=== PATIENT | female | born 1970 | race Caucasian/White ===

== ENCOUNTER → 2017-02-09 | Outpatient (CLI) | payer BC ==
[2017-02-09 14:52] VITALS: BP 131/70; PULSE 80; TEMP 98.2; BMI 26.6
--- NOTE | 2017-02-09 15:06 | P.BASOAP ---
Subjective Progress Note Date: 02/09/17 Principal diagnosis: Morbid obesity Patient here today requesting a lap band adjustment. She has not been seen at this clinic. She believes that she has 11 mL in her band. Recently she has had more hunger and able to eat more food. No significant dysphasia symptoms. She was previously tight we believe at 12.5 mL. She was as low as 131 pounds. Currently weight is in the 160s. Objective - Vital Signs Vital signs: Vital Signs Temp 98.2 F 02/09/17 14:48 Pulse 80 02/09/17 14:48 Resp BP 131/70 02/09/17 14:48 Pulse Ox Intake & Output 02/08/17 02/09/17 02/09/17 18:59 06:59 18:59 Weight 74.979 kg - Exam Abdomen: Soft, nontender, nondistended Assessment/Plan (1) Morbid obesity Narrative/Plan: Will add 0.5 mL of saline to her band. She will follow up with us as needed following that. The patient's lap band port was palpated. The site was aseptically prepped. 1% lidocaine was infiltrated into the subcutaneous tissues through a diabetic syringe. The Worrell needle was advanced into the port. Aspiration took place. A total of 0.5 ml of fluid was added. Pressure was held and a sterile dressing was applied. Plan: Date: 02/09/17 Initial Weight: Initial BMI: Current Weight: 74.979 kg Current BMI: 26.6 Type of Surgery: Total Volume in Band: Previous Volume: Volume Removed: Volume Added: Band Size:
== END | disposition home or self-care (01) ==
LOC: BARWHC3 14:26
PROVIDERS: ATTEND Surgery
DX: E66.01 Morbid (severe) obesity due to excess calories (principal); Z68.26 Body mass index [BMI] 26.0-26.9, adult
CPT/HCPCS: 99212

== ENCOUNTER → 2021-01-28 | Outpatient (CLI) | payer BC ==
[2021-01-28 16:00] VITALS: BP 155/88; PULSE 83; RESP 16; TEMP 98.2; BMI 29.5
--- NOTE | 2021-01-28 19:41 | P.BASOAP ---
Subjective Progress Note Date: 01/28/21 Principal diagnosis: Morbid obesity Patient returns for evaluation. Last seen 4 years ago. Was filled last time to 11.5 cc. Previously was tight at 12.5 cc. Lately as described new reflux for the last 2 months. Occasional vomiting. Weight is actually increased since last visit. Would like band loosened. Objective - Vital Signs Vital signs: Vital Signs Temp 98.2 F 01/28/21 15:55 Pulse 83 01/28/21 15:55 Resp 16 01/28/21 15:55 BP 155/88 01/28/21 15:55 Pulse Ox Intake & Output 01/28/21 01/28/21 01/29/21 06:59 18:59 06:59 Weight 83.007 kg - Exam Abdomen: Soft, nontender, nondistended Assessment/Plan (1) Morbid obesity Narrative/Plan: We will loosen the patient's band given the patient's recent history of acid reflux. Patient will notify me if the symptoms resolve. The patient's lap band port was palpated. The site was aseptically prepped. The Worrell needle was advanced into the port. Aspiration took place. A total of 8ml of fluid was Removed. Pressure was held and a sterile dressing was applied. Plan: Date: 01/28/21 Initial Weight: 74.984 kg Initial BMI: 26.6 Current Weight: 83.007 kg Current BMI: 29.5 Type of Surgery: Total Volume in Band: 3.5 Previous Volume: 11.5 Volume Removed: 8.0 Volume Added: Band Size:
== END ==
LOC: BARWHC3 15:01
PROVIDERS: ATTEND Surgery
DX: E66.01 Morbid (severe) obesity due to excess calories (principal); Z68.29 Body mass index [BMI] 29.0-29.9, adult; Z46.51 Encounter for fitting and adjustment of gastric lap band; Z88.0 Allergy status to penicillin
CPT/HCPCS: 99212

== ENCOUNTER → 2021-04-22 | Outpatient (CLI) | payer BC ==
[2021-04-22 12:09] VITALS: BP 130/75; PULSE 73; TEMP 98.2; BMI 29.8
--- NOTE | 2021-04-22 12:33 | P.BASOAP ---
Subjective Progress Note Date: 04/22/21 Principal diagnosis: Morbid obesity Patient returns today after having band loosened in January. Her band was being loosened because of hysterectomy performed in February. Patient incidentally complained of reflux and intermittent regurgitation when I saw her at the time of loosening her lap band. Patient has not had an esophagram done in quite some time. Says her symptoms of reflux and regurgitation are completely resolved. No pain. Doing well after her hysterectomy. Only gained 2 pounds. Recently joined a weight loss program noom. Objective - Vital Signs Vital signs: Vital Signs Temp 98.2 F 04/22/21 12:05 Pulse 73 04/22/21 12:05 Resp BP 130/75 04/22/21 12:05 Pulse Ox Intake & Output 04/21/21 04/22/21 04/22/21 18:59 06:59 18:59 Weight 83.915 kg - Exam Abdomen: Soft, nontender, nondistended Assessment/Plan (1) Morbid obesity Narrative/Plan: 50-year-old female with morbid obesity and previous reflux. Patient doing better after band loosened. Options of refilling band discussed. We also discussed the potential benefits of an esophagram at this time given the patient's recent complaints. She and I decided to hold off on a fill today and will schedule for an esophagram first. She will follow up after that and likely will undergo lap band adjustment at that time. Plan: Date: 04/22/21 Initial Weight: 74.984 kg Initial BMI: 26.6 Current Weight: 83.915 kg Current BMI: 29.8 Type of Surgery: Total Volume in Band: 3.5 Previous Volume: Volume Removed: Volume Added: Band Size:
== END ==
LOC: BARWHC3 11:44
PROVIDERS: ATTEND Surgery
DX: E66.01 Morbid (severe) obesity due to excess calories (principal); Z98.84 Bariatric surgery status; Z68.29 Body mass index [BMI] 29.0-29.9, adult; Z88.0 Allergy status to penicillin
CPT/HCPCS: 99211

== ENCOUNTER → 2021-05-06 | Outpatient (CLI) | payer BC ==
--- NOTE | 2021-05-06 15:41 | FL ---
Minute barium swallow HISTORY: Dysphasia 16 seconds fluoroscopy time, 4 images obtained Patient was given an barium to drink. Attention directed to the gastroesophageal junction. Patient is status post lap band. There is free flow of the swallow contrast across the LAP-BAND. Lap band shows an expected orientation. No obstruction to flow, no evident leak. Surgical clips present r ight upper quadrant. IMPRESSION: No evident complication secondary to lap band.
== END | disposition home or self-care (01) ==
LOC: RADFLMAIN 12:54
PROVIDERS: ATTEND Surgery
DX: R13.10 Dysphagia, unspecified (principal); Z98.84 Bariatric surgery status
CPT/HCPCS: 74220

== ENCOUNTER → 2021-05-06 | Outpatient (CLI) | payer BC ==
[2021-05-06 13:49] VITALS: BP 150/83; PULSE 106; RESP 16; TEMP 98.6; BMI 29.3
--- NOTE | 2021-05-06 14:32 | P.BASOAP ---
Subjective Progress Note Date: 05/06/21 Principal diagnosis: Morbid obesity Patient returns for reevaluation. Last seen in late March. Underwent recent hysterectomy in February. She had an esophagram today showing no evidence of obstruction or prolapse. Patient would like more fluid added to her band. She was previously tight at 11.5 mL. 8 mL was removed. A loya symptoms resolved completely. Objective - Vital Signs Vital signs: Vital Signs Temp 98.6 F 05/06/21 13:48 Pulse 106 H 05/06/21 13:48 Resp 16 05/06/21 13:48 BP 150/83 05/06/21 13:48 Pulse Ox Intake & Output 05/05/21 05/06/21 05/06/21 18:59 06:59 18:59 Weight 82.554 kg - Exam Abdomen: Soft, nontender, nondistended Assessment/Plan (1) Morbid obesity Narrative/Plan: Patient doing well today. We will and 4 mL to her band. Follow-up 6-8 weeks. The patient's lap band port was palpated. The site was aseptically prepped. The Worrell needle was advanced into the port. A total of 4 ml of fluid was added for a total of 7.5 mL.. Pressure was held and a sterile dressing was applied. Plan: Date: 05/06/21 Initial Weight: 74.984 kg Initial BMI: 26.6 Current Weight: 82.554 kg Current BMI: 29.3 Type of Surgery: Total Volume in Band: 3.5 Previous Volume: Volume Removed: Volume Added: Band Size:
== END ==
LOC: BARWHC3 12:51
PROVIDERS: ATTEND Surgery
DX: E66.01 Morbid (severe) obesity due to excess calories (principal); Z46.51 Encounter for fitting and adjustment of gastric lap band; Z68.29 Body mass index [BMI] 29.0-29.9, adult; Z88.0 Allergy status to penicillin
CPT/HCPCS: 99211

== ENCOUNTER → 2021-09-30 | Outpatient (CLI) | payer BC ==
[2021-09-30 14:36] VITALS: BP 143/80; PULSE 77; TEMP 98; BMI 31.6
--- NOTE | 2021-09-30 15:55 | P.BASOAP ---
Subjective Progress Note Date: 09/30/21 Principal diagnosis: Morbid obesity Patient had her band loosened from 11.5 down to 3.5 mL. 4 mL was added last visit for a total of 7.5 mL. Still feels loose. She is hungry. She has gained 14 pounds since her last visit. Objective - Vital Signs Vital signs: Vital Signs Temp 98 F 09/30/21 14:34 Pulse 77 09/30/21 14:34 Resp BP 143/80 09/30/21 14:34 Pulse Ox FiO2 Intake & Output 09/29/21 09/30/21 09/30/21 18:59 06:59 18:59 Weight 88.904 kg - Exam Abdomen: Soft, nontender, nondistended Assessment/Plan (1) Morbid obesity Narrative/Plan: Patient would like more fluid added to the band. We have agreed at 2 mL today. The patient's lap band port was palpated. The site was aseptically prepped. The Worrell needle was advanced into the port. A total of 2 ml of fluid was added for a total of 9.5 mL. Pressure was held and a sterile dressing was applied. Plan: Date: 09/30/21 Initial Weight: 74.984 kg Initial BMI: 26.6 Current Weight: 88.904 kg Current BMI: 31.6 Type of Surgery: Total Volume in Band: 3.5 Previous Volume: Volume Removed: Volume Added: Band Size:
== END ==
LOC: BARWHC3 13:35
PROVIDERS: ATTEND Surgery
DX: E66.01 Morbid (severe) obesity due to excess calories (principal); Z46.51 Encounter for fitting and adjustment of gastric lap band; Z68.31 Body mass index [BMI] 31.0-31.9, adult; Z88.0 Allergy status to penicillin
CPT/HCPCS: 99212